=== PATIENT | female | born 1965 | race American Indian/Alaskan Native ===

== ENCOUNTER 2018-01-05 17:52 | Emergency (ER) | payer OTHER, BC ==
[2018-01-05 18:05] VITALS: BP 137/89
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
[2018-01-05] MEDS ORDERED: FLEXERIL PO ONE (23:50)
[2018-01-05] MEDS ORDERED: MOTRIN PO ONE (23:50)
== END 2018-01-06 00:05 | disposition home or self-care (01) ==
LOC: ED 17:52
DX: S16.1XXA Strain of muscle, fascia and tendon at neck level, initial encounter (principal); S39.012A Strain of muscle, fascia and tendon of lower back, initial encounter; Z90.710 Acquired absence of both cervix and uterus; V43.52XA Car driver injured in collision with other type car in traffic accident, initial encounter; Y93.89 Activity, other specified; Y92.488 Other paved roadways as the place of occurrence of the external cause; Y99.8 Other external cause status
CPT/HCPCS: 99283

== ENCOUNTER 2021-02-09 10:10 | Emergency (ER) | payer BC ==
[2021-02-09 10:15] VITALS: BP 122/77
[2021-02-09] MEDS ORDERED: KETOROLAC 60 MG/2 ML INJ IM ONE (10:47)
--- NOTE | 2021-02-09 10:50 | Emergency Department Report ---
ED General Adult HPI - General Chief complaint: Extremity Injury, Lower Stated complaint: RT KNEE INJURY Time Seen by Provider: 02/09/21 10:22 Source: patient Mode of arrival: Ambulatory Limitations: No Limitations - History of Present Illness Initial comments: 55-year-old -[place] female patient presents with complaints of right knee pain x2 weeks. Patient states the pain has been ongoing since she twisted her knee. She reports she followed up with her primary care doctor and received a steroid injection and Robaxin for home. Patient also states she had a x-ray that was negative for any fracture. Patient reports that the medications are not helping. Pain occurs mainly with movement and while sleeping at night. She denies any loss of sensation, weakness, or difficulty moving her leg. No past medical history per patient. - Related Data Previous Rx's Medication Instructions Recorded Last Taken Type Cyclobenzaprine [Flexeril 10 MG 10 mg PO TID #15 tablet 01/05/18 Unknown Rx TAB] Ibuprofen [Motrin 800 MG tab] 800 mg PO Q8HR PRN #30 tablet 01/05/18 Unknown Rx Acetaminophen/Codeine [Tylenol 1 tab PO QHS PRN #3 tab 02/09/21 Unknown Rx /Codeine # 3 tab] Naproxen 500 mg PO BID PRN #20 tablet 02/09/21 Unknown Rx Allergies Allergy/AdvReac Type Severity Reaction Status Date / Time No Known Allergies Allergy Unverified 02/09/21 10:15 ED Review of Systems ROS: Stated complaint: RT KNEE INJURY Other details as noted in HPI Constitutional: denies: chills, fever, malaise Musculoskeletal: arthralgia. denies: joint swelling Neurological: abnormal gait. denies: numbness, paresthesias ED Past Medical Hx - Surgical History Additional Surgical History: partial hystertomy - Social History Smoking Status: Never Smoker Substance Use Type: Alcohol - Medications Home Medications: Home Medications Medication Instructions Recorded Confirmed Last Taken Type Cyclobenzaprine [Flexeril 10 MG 10 mg PO TID #15 tablet 01/05/18 Unknown Rx TAB] Ibuprofen [Motrin 800 MG tab] 800 mg PO Q8HR PRN #30 tablet 01/05/18 Unknown Rx Acetaminophen/Codeine [Tylenol 1 tab PO QHS PRN #3 tab 02/09/21 Unknown Rx /Codeine # 3 tab] Naproxen 500 mg PO BID PRN #20 tablet 02/09/21 Unknown Rx ED Physical Exam - General Limitations: No Limitations General appearance: alert, in no apparent distress - Head Head exam: Present: atraumatic, normocephalic - Eye Eye exam: Present: normal appearance. Absent: scleral icterus - Respiratory Respiratory exam: Absent: respiratory distress - Cardiovascular Cardiovascular Exam: Present: regular rate - Expanded Lower Extremity Exam Right Knee exam: Present: full ROM, tenderness (Noted to medial joint line). Absent: swelling, abrasion, laceration, deformity, dislocation, erythema, effusion Lower Leg exam: Present: normal inspection Gait: Positive: antalgic - Neurological Exam Neurological exam: Present: alert, oriented X3 - Psychiatric Psychiatric exam: Present: normal affect, normal mood - Skin Skin exam: Present: warm, dry, intact, normal color. Absent: rash ED Course Vital Signs 02/09/21 10:14 Temperature 97.6 F Pulse Rate 84 Respiratory 18 Rate Blood Pressure 122/77 O2 Sat by Pulse 98 Oximetry ED Medical Decision Making - Medical Decision Making 55-year-old -[place] female patient presents with complaints of right knee pain x2 weeks. Patient states the pain has been ongoing since she twisted her knee. She reports she followed up with her primary care doctor and received a steroid injection and Robaxin for home. Patient also states she had a x-ray that was negative for any fracture. Patient reports that the medications are not helping. Pain occurs mainly with movement and while sleeping at night. She denies any loss of sensation, weakness, or difficulty moving her leg. No past medical history per patient. Tenderness to palpation noted to right medial joint line. Suspect internal derangement or meniscal injury. Patient placed in a knee immobilizer and provided with crutches. She is stable for discharge home. Patient to follow-up with orthopedics, referral provided. Discussed presumptive diagnosis, treatment plan, and signs and symptoms that should prompt immediate return to the ED with patient verbalized understanding. Critical care attestation.: If time is entered above; I have spent that time in minutes in the direct care of this critically ill patient, excluding procedure time. ED Disposition Clinical Impression: Internal derangement of right knee Disposition: HOME / SELF CARE / HOMELESS Is pt being admited?: No Condition: Stable Instructions: Knee Sprain, Adult Prescriptions: Acetaminophen/Codeine [Tylenol /Codeine # 3 tab] 1 tab PO QHS PRN #3 tab PRN Reason: Pain , Severe (7-10) Naproxen 500 mg PO BID PRN #20 tablet PRN Reason: Pain Referrals: [facility] [Provider Group] - 3-5 Days
== END 2021-02-09 11:51 | disposition home or self-care (01) ==
LOC: ED 10:10
DX: M23.91 Unspecified internal derangement of right knee (principal)
CPT/HCPCS: 29505; 96372; 99282; J1885